=== PATIENT | male | born 1990 | race Two or more races ===

== ENCOUNTER 2020-02-08 14:54 | Emergency (ER) | payer SELFPAY ==
[~2020-02-08] VITALS: Ht 175.3 cm; Wt 68.4 kg
[2020-02-08 15:49] VITALS: BP 118/85
--- NOTE | 2020-02-08 16:45 | NUR ---
DISCHARGE INSTRUCTIONS REVIEWED
== END 2020-02-08 16:52 | disposition home or self-care (01) ==
LOC: ED 15:30
DX: S43.402A Unspecified sprain of left shoulder joint, initial encounter (principal); X58.XXXA Exposure to other specified factors, initial encounter; Y93.89 Activity, other specified; Y92.89 Other specified places as the place of occurrence of the external cause; Y99.8 Other external cause status
CPT/HCPCS: 99283